=== PATIENT | female | born 1995 | race Caucasian/White ===

== ENCOUNTER 2019-01-03 21:26 | Emergency (ER) | payer SELFPAY ==
[2019-01-03 21:31] VITALS: BP 105/64; PULSE 84; TEMP 98.1; BMI 27.8
--- NOTE | 2019-01-03 21:31 | PDOC ---
Rapid Medical Evaluation Time Seen by Provider: 01/03/19 21:27 Medical Evaluation: 01/03/19 21:27 I have performed a brief in-person evaluation of this patient. The patient presents with a chief complaint of: "I have a UTI" X 6 days, also w / white vaginal discharge and itching. no fever, no NV I have ordered the following: UA, UCG, Ucx The patient will proceed to the ED for further evaluation. Discharge Disposition - Diagnosis Urinary tract infection Qualifiers: Urinary tract infection type: site unspecified Hematuria presence: without hematuria Qualified Code(s): N39.0 - Urinary tract infection, site not specified - Referrals - Patient Instructions - Post Discharge Activity
[2019-01-03 22:01] LABS: PH,URINE 5.5 (5.0-8.0); URINE APPEARANCE CLEAR; URINE BILIRUBIN NEGATIVE (NEGATIVE); URINE COLOR YELLOW; URINE GLUCOSE (UA) NEGATIVE (NEGATIVE); URINE KETONE NEGATIVE (NEGATIVE); URINE LEUK ESTERASE NEGATIVE (NEGATIVE); URINE NITRITE NEGATIVE (NEGATIVE); URINE PROTEIN NEGATIVE (NEGATIVE); URINE UROBILINOGEN 0.2 mg/dL (0.2-1.0)
--- NOTE | 2019-01-03 22:44 | PDOC ---
History of Present Illness - History of Present Illness Initial Comments: 01/03/19 22:43 23-year-old female without comorbidities presents for evaluation of pelvic pressure. She is unsure if she has any urinary symptoms. She states she has a malodorous discharge. She is monogamous in her marriage. She has no concerns for STDs. No systemic symptoms. <Yuri Berrios - Last Filed: 01/03/19 22:41> <Rose Amado - Last Filed: 01/03/19 22:46> - General Chief Complaint: Vaginal Sxs Stated Complaint: URINARY INFECTION Time Seen by Provider: 01/03/19 21:27 Past History - Past Medical History COPD: No - Suicide/Smoking/Psychosocial Hx Smoking History: Unknown if ever smoked Have you smoked in the past 12 months: No Information on smoking cessation initiated: No Hx Alcohol Use: No Drug/Substance Use Hx: No <Yuri Berrios - Last Filed: 01/03/19 22:41> <Rose Amado - Last Filed: 01/03/19 22:46> - Past Medical History Home Medications: Ambulatory Orders Fluconazole [Diflucan] 150 mg PO ONCE #1 tablet 01/03/19 metroNIDAZOLE [Flagyl -] 500 mg PO BID 7 Days #14 tablet 01/03/19 Review of Systems - Review of Systems : Yes: Discharge <Yuri Berrios - Last Filed: 01/03/19 22:41> *Physical Exam - Vital Signs Last Vital Signs Temp Pulse Resp BP Pulse Ox 98.1 F 84 16 105/64 100 01/03/19 21:29 01/03/19 21:29 01/03/19 21:29 01/03/19 21:29 01/03/19 21:29 - Physical Exam Comments: 01/03/19 22:43 HEAD: NC/AT EYES: Conjuntiva clear NEUROLOGIC: No gross sensory or motor deficits, NVID SKIN: Normal color and temperature no lesions or rashes Pelvic examination done by female provider. <Yuri Berrios - Last Filed: 01/03/19 22:41> - Vital Signs Last Vital Signs Temp Pulse Resp BP Pulse Ox 98.1 F 84 16 105/64 100 01/03/19 21:29 01/03/19 21:29 01/03/19 21:29 01/03/19 21:29 01/03/19 21:29 - Physical Exam Female Pelvic Exam: positive: normal external exam, cervical os closed, normal adnexa, other (white vaginal discharge with labial irritation). negative: adnexal tenderness <Rose Amado - Last Filed: 01/03/19 22:46> ED Treatment Course - ADDITIONAL ORDERS Additional order review: Laboratory Results 01/03/19 01/03/19 21:42 21:42 Urine Color Yellow Urine Appearance Clear Urine pH 5.5 Ur Specific [place] 1.024 Urine Protein Negative Urine Glucose (UA) Negative Urine Ketones Negative Urine Blood Negative Urine Nitrite Negative Urine Bilirubin Negative Urine Urobilinogen 0.2 Ur Leukocyte Esterase Negative Urine HCG, Qual Negative <Yuri Berrios - Last Filed: 01/03/19 22:41> - ADDITIONAL ORDERS Additional order review: Laboratory Results 01/03/19 01/03/19 21:42 21:42 Urine Color Yellow Urine Appearance Clear Urine pH 5.5 Ur Specific [place] 1.024 Urine Protein Negative Urine Glucose (UA) Negative Urine Ketones Negative Urine Blood Negative Urine Nitrite Negative Urine Bilirubin Negative Urine Urobilinogen 0.2 Ur Leukocyte Esterase Negative Urine HCG, Qual Negative <Rose Amado - Last Filed: 01/03/19 22:46> Medical Decision Making - Medical Decision Making 01/03/19 22:46 vaginal exam as noted. + vaginitis. <Rose Amado - Last Filed: 01/03/19 22:46> *DC/Admit/Observation/Transfer - Discharge Dispostion Decision to Admit order: No <Yuri Berrios - Last Filed: 01/03/19 22:41> <Rose Amado - Last Filed: 01/03/19 22:46> Diagnosis at time of Disposition: Yeast infection, Bacterial vaginitis Diagnosis at time of Disposition: (Ruled Out): Urinary tract infection - Discharge Dispostion Disposition: HOME Condition at time of disposition: Stable - Prescriptions Prescriptions: Fluconazole [Diflucan] 150 mg PO ONCE #1 tablet metroNIDAZOLE [Flagyl -] 500 mg PO BID 7 Days #14 tablet - Referrals Referrals: Coty Rushing MD [Staff Physician] - - Patient Instructions Printed Discharge Instructions: Bacterial Vaginosis, DI for Vaginal Yeast Infection, DI for Bacterial Vaginosis Additional Instructions: Please the antibiotics as directed. Return to the emergency room for worsening symptoms. Please take the antifungal medication as directed. Follow-up with OB/ [facility] in one to 2 days for further evaluation and treatment options. Follow-up with livestock judging coach in 1-2 days without fail.
== END 2019-01-03 22:50 | disposition home or self-care (01) ==
LOC: JERFT 21:26
DX: B37.9 Candidiasis, unspecified (principal); N76.0 Acute vaginitis; N39.0 Urinary tract infection, site not specified
CPT/HCPCS: 81003; 84703; 87077; 87086; 99282-25